=== PATIENT | male | born 1975 | race Caucasian/White ===

== ENCOUNTER 2019-01-31 11:40 | Emergency (ER) | payer MEDICAID ==
[~2019-01-31] VITALS: Ht 170.2 cm; Wt 80.7 kg
[2019-01-31 11:56] VITALS: BP 133/90; Ht 170.2 cm; Wt 80.7 kg
== END 2019-01-31 14:03 | disposition home or self-care (01) ==
LOC: ED 11:40
DX: J36 Peritonsillar abscess (principal)
CPT/HCPCS: J0696; J7512

== ENCOUNTER 2019-07-11 17:44 | Emergency (ER) | payer OTHER ==
[~2019-07-11] VITALS: Ht 170.2 cm; Wt 77.1 kg
[2019-07-11 17:51] VITALS: BP 121/78; Ht 170.2 cm; Wt 77.1 kg
== END 2019-07-11 18:01 | disposition other institution (70) ==
LOC: ED 17:44
DX: Z02.89 Encounter for other administrative examinations (principal)

== ENCOUNTER 2020-02-02 01:12 | Emergency (ER) | payer OTHER ==
[~2020-02-02] VITALS: Ht 170.2 cm; Wt 79.4 kg
[2020-02-02 01:28] VITALS: BP 117/79; Ht 170.2 cm; Wt 79.4 kg
== END 2020-02-02 02:34 | disposition home or self-care (01) ==
LOC: ED 01:12
DX: S61.211A Laceration without foreign body of left index finger without damage to nail, initial encounter (principal); W26.8XXA Contact with other sharp object(s), not elsewhere classified, initial encounter; Y93.89 Activity, other specified; Y92.89 Other specified places as the place of occurrence of the external cause; Y99.8 Other external cause status
CPT/HCPCS: J2001